=== PATIENT | female | born 1970 | race Caucasian/White ===

== ENCOUNTER 2024-07-10 06:32 | Observation (INO) ==
--- NOTE | 2024-06-14 11:34 | PAT Medication Instructions ---
Medication Instructions Date of Service June 14, 2024 Home Medications albuterol sulfate 90 mcg/actuation aerosol inhaler 1 inh inhalation QID PRN aspirin 81 mg capsule 81 mg PO QAM duloxetine 60 mg capsule,delayed release 60 mg PO QAM metformin 1,000 mg tablet 1,000 mg PO BID oxybutynin chloride 5 mg tablet 5 mg PO QAM pantoprazole 40 mg tablet,delayed release 40 mg PO QAM rizatriptan 10 mg tablet 10 mg PO UD PRN rosuvastatin 10 mg tablet 10 mg PO HS semaglutide 0.25 mg or 0.5 mg (2 mg/3 mL) subcutaneous pen injector (Ozempic) 0.5 mg subcut WK STOP 7 days before surgery semaglutide 0.25 mg or 0.5 mg (2 mg/3 mL) subcutaneous pen injector (Ozempic) 0.5 mg subcut WK Continue as directed rizatriptan 10 mg tablet 10 mg PO UD PRN(if needed) ASK your prescriber and surgeon aspirin 81 mg capsule 81 mg PO QAM DO NOT take the morning of surgery metformin 1,000 mg tablet 1,000 mg PO BID oxybutynin chloride 5 mg tablet 5 mg PO QAM Take morning of surgery With a small sip of water, OTHERWISE NOTHING TO EAT OR DRINK AFTER MIDNIGHT: albuterol sulfate 90 mcg/actuation aerosol inhaler 1 inh inhalation QID PRN(use if needed; please bring with you to hospital day of surgery if possible) duloxetine 60 mg capsule,delayed release 60 mg PO QAM pantoprazole 40 mg tablet,delayed release 40 mg PO QAM Take evening before surgery albuterol sulfate 90 mcg/actuation aerosol inhaler 1 inh inhalation QID PRN(if needed) metformin 1,000 mg tablet 1,000 mg PO BID rosuvastatin 10 mg tablet 10 mg PO HS Other Notes If you have any questions please call us at [phone] or [phone] or [phone] or [phone]
--- NOTE | 2024-06-16 09:26 | Anesthesiology Consultation ---
Date of Service June 16, 2024 Assessment & Plan (1) Encounter for pre-operative examination: - Check BSG AM DOS - Infectious disease screening: Per assessment on 06/16/24: No known recent infectious disease contacts or current infectious disease symptoms. - Outpatient joint assessment: Pt currently scheduled for inpatient pathway. If surgeon requests review for outpatient joint pathway, patient is an acceptable candidate for outpatient joint program from anesthesia standpoint pending surgeon's office assessment that patient is motivated, has good support and completes [facility] Program preop requirements. - Semaglutide instructions: Patient informed by PAT to stop 7 days prior to surgery- voiced understanding. DOS 07/10/24. Advised last dose to be 06/30/24. Chart Review Chart Review: Acceptable Risk for Surgery and Patient seen in Pre Admission Testing Teaching & Discussion Pre-Anesthesia Teaching/Discussion Notes: Instructed NPO after midnight before surgery,except medications with 15 cc of water. Medication instructions provided according to the PAT guidelines. History Surgery Operation Date: 07/10/24 12:00 Proposed Procedures p Left Total Knee Arthroplasty - Didier Denton DO Height/Weight Height: 5 ft 2 in Weight: 82.8 kg Allergies Allergy/AdvReac Type Severity Reaction Status Date / Time amoxicillin Allergy Severe Rash Verified 06/14/24 09:11 Penicillins Allergy Severe Rash Verified 06/14/24 09:11 tirzepatide [From [facility]] Allergy Severe Cellulitis Verified 06/14/24 13:00 at injeciton site oxycodone AdvReac Intermediate Itching Verified 06/14/24 09:11 Medications Home Medications Medication Instructions Recorded Confirmed Last Taken albuterol sulfate 90 mcg/actuation 1 inh inhalation QID PRN sob 06/14/24 06/14/24 Unknown aerosol inhaler aspirin 81 mg capsule 81 mg PO QAM 06/14/24 06/14/24 Unknown duloxetine 60 mg capsule,delayed 60 mg PO QAM 06/14/24 06/14/24 Unknown release metformin 1,000 mg tablet 1,000 mg PO BID 06/14/24 06/14/24 Unknown oxybutynin chloride 5 mg tablet 5 mg PO QAM 06/14/24 06/14/24 Unknown pantoprazole 40 mg tablet,delayed 40 mg PO QAM 06/14/24 06/14/24 Unknown release rizatriptan 10 mg tablet 10 mg PO UD PRN onset of migraines 06/14/24 06/14/24 Unknown rosuvastatin 10 mg tablet 10 mg PO HS 06/14/24 06/14/24 Unknown semaglutide 0.25 mg or 0.5 mg (2 0.5 mg subcut WK 06/14/24 06/14/24 06/09/24 mg/3 mL) subcutaneous pen injector (Ozempic) Past Medical History Medical History Anxiety Diabetes mellitus, type 2 NIDDM GERD (gastroesophageal reflux disease) History of asthma As child + flares with URI No recent issues Hyperlipidemia Migraine Osteoarthritis Overactive bladder Currently controlled Exercise / Class Metabolic Activity II 4-5 Yardwork/Stairs/Walk up hill (one FS: no CP, no SOB) Past Family History Family History Other No family history of adverse response to anesthesia Past Surgical History Surgical History History of anesthesia reaction "Difficulty maintaining SpO2" after lap laura, had to remain overnight with oxygen and was discharged POD#1 History of cholecystectomy History of colonoscopy History of esophagogastroduodenoscopy (EGD) S/P bilateral foot surgery Plantar fascitis repair S/P carpal tunnel release R/L S/P left knee arthroscopy x3 S/P right knee arthroscopy x2 S/P ALMA-BSO Past Anesthesia History No Family Hx of Anesthesia Complications and Other ("Difficulty maintaining SpO2" after lap laura, had to remain overnight with oxygen and was discharged POD#1) History of PONV No Hx of PONV and Hx of Motion Sickness (Vertigo) Social History Smoking Status: Never smoker Do You Dip or Chew Tobacco: No Hx Alcohol Use: Yes alcohol intake frequency: holidays/special occasions only Hx Substance Use: No substance use type: does not use Review of Systems Patient denies chest pain, shortness of breath, dyspnea on exertion, fever, chills, cough, wheezing, palpitations. Physical Exam Vital Signs BP 110/71 P 79 TEMP 98.0 SP02 97%RA RESP 18 Physical Full cervical extension range of motion. Full TMJ range of motion. TMD > 3.5 finger breaths Mallampati Score I Dentition: intact Lungs: clear throughout to auscultation Cardiac: regular rate and rhythm, no murmurs noted Spine: normal Carotid arteries: negative bruit Extremities: no LE edema Lab Results Anesthesia Preop Results Results Anesthesia Widget: WBC 6.34 K/ul (4.8-10.8) 06/16/24 Hgb 12.2 g/dl (12.0-16.0) 06/16/24 Hct 36.9 % (37.0-47.0) L 06/16/24 Plt 210 K/uL (130-400) 06/16/24 Na 140 mmol/L (136-145) 06/16/24 K 4.3 mmol/L (3.5-5.1) 06/16/24 Cl 104 mmol/L (98-107) 06/16/24 CO2 29 mmol/L (21-32) 06/16/24 BUN 12 mg/dl (6-23) 06/16/24 Creat 0.88 mg/dl (0.6-1.2) 06/16/24 Glucose Level 122 mg/dl (70-99(Fasting)) H 06/16/24 PT 10.5 Seconds (9.0-12.0) 06/16/24 PTT 26 Seconds (21-31) 06/16/24 INR 1.0 (0.9-1.1) 06/16/24 HA1c 6.0 % (4.5-5.6) H 06/16/24 Blood Type AB Positive 06/16/24 Antibody Screen NEGATIVE 06/16/24 Testing Electrocardiogram Date: 06/16/24 NSR at 79bpm. "Normal ECG" Chest X-Ray Date: 06/16/24 Findings: + NAD Echocardiogram Date: 10/01/21 EF 60%. Mild MR/TR/PA. Stress Test Date: 10/20/21 Stress EKG was negative for myocardial ischemia at 100% MPHR. Low level of exercise achieved. Recommendations: Improve BP control. May need beta michael.
--- NOTE | 2024-07-06 07:07 | History & Physical Report ---
Date of Service July 06, 2024 Assessment & Plan (1) Osteoarthritis of left knee: We will proceed with a left total knee arthroplasty. Postoperatively she will be started on aspirin for DVT prophylaxis and kept overnight in the hospital for postop medical management. She plans to use energy physical therapy upon discharge. History of Present Illness Chief Complaint: Osteoarthritis of the left knee. Primary Care Provider: NO PCP Carolynn is a pleasant 53-year-old female who has been dealing with chronic increasing left knee pain. She has been seeing another provider. She has had 2 prior arthroscopies of her left knee. Both times she was told she had complete chondral loss on the medial side. She has been dealing with multiple injections. The injections do not help. After failing conservative treatment, she has elected to proceed with a left total knee arthroplasty. Allergies Allergy/AdvReac Type Severity Reaction Status Date / Time amoxicillin Allergy Severe Rash Verified 06/14/24 09:11 Penicillins Allergy Severe Rash Verified 06/14/24 09:11 [facility] Allergy Severe Cellulitis Verified 06/14/24 13:00 at injeciton site oxycodone AdvReac Intermediate Itching Verified 06/14/24 09:11 Home Medications Medication Instructions Recorded Confirmed Type albuterol sulfate 90 mcg/actuation 1 inh inhalation QID PRN sob 06/14/24 06/14/24 History aerosol inhaler aspirin 81 mg capsule 81 mg PO QAM 06/14/24 06/14/24 History duloxetine 60 mg capsule,delayed 60 mg PO QAM 06/14/24 06/14/24 History release metformin 1,000 mg tablet 1,000 mg PO BID 06/14/24 06/14/24 History oxybutynin chloride 5 mg tablet 5 mg PO QAM 06/14/24 06/14/24 History pantoprazole 40 mg tablet,delayed 40 mg PO QAM 06/14/24 06/14/24 History release rizatriptan 10 mg tablet 10 mg PO UD PRN onset of migraines 06/14/24 06/14/24 History rosuvastatin 10 mg tablet 10 mg PO HS 06/14/24 06/14/24 History semaglutide 0.25 mg or 0.5 mg (2 0.5 mg subcut WK 06/14/24 06/14/24 History mg/3 mL) subcutaneous pen injector (Ozempic) Past Med/Surg History Problem List Encounter for pre-operative examination Osteoarthritis of left knee Medical History Overactive bladder Currently controlled Osteoarthritis Migraine History of asthma As child + flares with URI No recent issues GERD (gastroesophageal reflux disease) Anxiety Diabetes mellitus, type 2 NIDDM Hyperlipidemia Surgical History History of anesthesia reaction "Difficulty maintaining SpO2" after lap laura, had to remain overnight with oxygen and was discharged POD#1 History of cholecystectomy History of esophagogastroduodenoscopy (EGD) History of colonoscopy S/P bilateral foot surgery Plantar fascitis repair S/P ALMA-BSO S/P carpal tunnel release R/L S/P right knee arthroscopy x2 S/P left knee arthroscopy x3 Family History Other No family history of adverse response to anesthesia Social History Smoking Status: Never smoker Second Hand Exposure: No; Do You Dip or Chew Tobacco: No; Tobacco Cessation Education Requested by Patient: No Hx Alcohol Use: Yes Hx Substance Use: No Preferred Language: Fijian Communication Ability: Effective Spragger Required: No Beliefs That Will Affect Care: None Current Living Situation: Spouse Other Information That Helps Us Care for You: No Feels Safe at Home: Yes Safety Concerns: Feels Safe At This Time Assistive Devices: Glasses and Hearing Aid - Bilateral Review of Systems All systems reviewed & are unremarkable except as noted in HPI & below. Physical Exam On physical examination left knee, she has slight varus deformity. She has tenderness palpation of the distal medial and lateral femoral condyles. She has no effusion.. Constitutional WD/WN, vitals as above Eyes PERRL, conjunctivae normal, anicteric sclerae ENMT external ear and nose normal, oropharynx normal Neck trachea midline, no thyromegaly Respiratory normal respiratory effort Cardiovascular RRR, no murmur, no edema Gastrointestinal (Abdomen) normal bowel sounds, soft, nontender, no hepatosplenomegaly Psychiatric A+Ox3, euthymic affect Results & Data Results & Data Laboratory Results . Diagnostic Findings X-rays of the left knee show moderate osteoarthritis with some joint space narrowing and small osteophyte formation.. PG Care Time/CCT Total # of Minutes Spent Total Time Spent with Patient: Total time spent is greater than 50% in coordination of care (as documented) at patient's floor/unit and/or counseling patient: Coding Level of Care Code None Diagnoses Osteoarthritis of left knee M17.12
[~2024-07-10 06:32] MED LIST: BUPIVACAINE 0.5 % 5 MG/1 ML PF 10ML VIAL ONE; BUPIVACAINE/EPINEPHRINE 0.25% 1:200,000 30 ML VIAL ONE; DEXAMETHASONE SOD INJ 4 MG/ML VIAL ONE; ceFAZolin 2000MG 2,000 MG/15 ML SYR IV SCH
[2024-07-10] MEDS ORDERED: Nursing to Pharmacy Communication SCH (06:45)
[2024-07-10] MEDS ORDERED: KETAMINE HCL 10MG/ML SYR ONE (06:51)
[2024-07-10] MEDS ORDERED: MIDAZOLAM HCL 1 MG/ML 2ML VIAL ONE (06:51)
[2024-07-10] MEDS ORDERED: LIDOCAINE 2% 2 ML VIAL/AMP(20MG/ML) INFIL ONE (06:52)
[2024-07-10] MEDS ORDERED: PROPOFOL IV EMULSION 10 MG/ML 20 ML VIAL IV ONE (06:52)
[2024-07-10] MEDS ORDERED: GLYCOPYRROLATE 0.2 MG/ML VIAL ONE (06:52)
[2024-07-10] MEDS ORDERED: ONDANSETRON INJ 2 MG/ML 2 ML VIAL ONE (06:52)
[2024-07-10] MEDS ORDERED: fentaNYL citrate PF 100 MCG/2 ML VIAL IV PRN (07:05)
[2024-07-10] MEDS ORDERED: ePHEDrine sulfate 50 MG/ML AMP IV PRN (07:05)
[2024-07-10] MEDS ORDERED: ATROPINE SULFATE 0.1 MG/ML 10ML SYR IV PRN (07:05)
[2024-07-10] MEDS ORDERED: ONDANSETRON INJ 2 MG/ML 2 ML VIAL IV PRN ×2 (07:05→10:49)
[2024-07-10] MEDS: GABAPENTIN 900 MG DOSE PO SCH (07:28)
[2024-07-10] MEDS: ACETAMINOPHEN 500 MG TAB PO SCH ×2 (07:28→14:21)
[2024-07-10] MEDS: FAMOTIDINE 20 MG TAB PO SCH (07:28)
[2024-07-10] MEDS: LR 500ML BOLUS, THEN 15ML/HR IV SCH (07:40)
[2024-07-10] MEDS: LR 60ML/HR IV SCH (07:41)
[2024-07-10] MEDS: ceFAZolin 2,000 MG/15 ML IV PUSH IV ONE (07:41)
[2024-07-10] MEDS: dexAMETHasone**PF** 10 MG/ML VIAL IV SCH (07:43)
[2024-07-10] MEDS: TRANEXAMIC ACID 1,000 MG **IV Pre-op IV SCH (07:44)
--- NOTE | 2024-07-10 07:51 | History & Physical Bridge Note ---
Date of Service July 10, 2024 History & Physical Bridge Note I have examined the patient, reviewed the History & Physical and in the interval since the performance of the History & Physical I have noted the following changes of clinical significance: no changes noted
[2024-07-10] MEDS: ceFAZolin 2000MG 2,000 MG/15 ML SYR IV SCH ×2 (07:57→16:01)
[2024-07-10] MEDS: ROPIV 0.5% 246mg, Ketorolac 30mg, EPINEPHrine 0.5mg in NSS INFIL SCH (08:32)
[2024-07-10] MEDS: ORTHO JOINT ANESTHETIC ONE (08:33)
[2024-07-10] MEDS: TRANEXAMIC ACID 1,000 MG **IV Intra-op IV SCH (08:55)
--- NOTE | 2024-07-10 09:09 | Operative Report ---
PG Post Operative Report Pre & Post Diagnosis Operation Date: 07/10/24 08:00 Pre-Op Diagnosis: Degenerative Joint Disease, Left Knee Post-Op Diagnosis: Degenerative Joint Disease, Left Knee I identified the patient and participated in the time-out.: Yes Procedure Operation Date: 07/10/24 08:00 Actual Procedures p Left Total Knee Arthroplasty(Left) - Didier Denton DO Surgeon Didier Denton DO Cloth Printer Helper Didier De Paz PA-C Estimated Blood Loss 30 Findings Consistent with Post-Op Diagnosis Specimens Left femoral and tibial bone Description of Procedure Implants used: I used a Carla Persona total knee arthroplasty system with a size 6 PS standard femur, C tibia, 28 oval patella, and a size 14 CPS polyethylene bearing. All components were cemented in place with Biomet cement. Carolynn arrived [facility] for the above procedure. She was seen in the preoperative holding area and the operative extremity was identified and signed. She was given a preoperative antibiotic, TXA, a spinal anesthetic and an adductor nerve block. She was taken back to the operating room and laid on the table in supine position. She was given basic sedation. The operative knee was then prepped and draped in sterile fashion. A timeout was done, and the patient and the operative extremity was properly identified. A midline incision was made directly over the patella. Dissection was taken down to the extensor mechanism. A subvastus arthrotomy was used. The medial retinaculum was released and the fat pad was mostly excised. The knee was flexed and the ACL, PCL, and meniscus were removed. A drill was sent down the center of the femoral canal followed by an intramedullary vidhya. Off that vidhya a distal femoral cutting block was placed. 9 mm was resected off the distal femur at 5 of valgus. A posterior referencing AP sizing guide was then placed on the distal femur. The femur measured to be a size 6. 2 drill holes were placed in 3 of external rotation. A 4-in-1 cutting block was then impacted into place. Anterior, posterior, and chamfer cuts were then made. The proximal tibia was then exposed. An external tibial alignment guide was placed. A tibial cut guide was then anchored in place and the proximal tibia was then resected. The posterior aspect of the knee was then opened up and any additional meniscus fragments and osteophytes were removed. The tibia measured to be a size C. The tibial plate was then placed in the appropriate rotation and the tibia was drilled and punched. Trial components were then placed. I used a size 14 CPS polyethylene insert. The knee was brought through a full range of motion and felt to be stable. The peg holes for the femoral component were then drilled. The patella was then everted and 9 mm was resected off the posterior aspect of the patella. The patella measured to be a size 28 oval. 3 peg holes were then drilled. A trial patella was placed. The knee was once again brought through a full range of motion and felt to be stable. Trial components were then removed. The surrounding soft tissues were injected with 100 cc of an orthopedic pain control cocktail. All components were then cemented into place with Biomet cement. The final polyethylene insert was then snapped into place. Once cement was dry the tourniquet was deflated. Hemostasis was obtained. A dilute betadyne lavage was then done for 3 minutes. The joint was then irrigated with normal saline solution. The subvastus arthrotomy was then closed with #1 Vicryl suture. The skin was closed with 2-0 Vicryl, 3-0V lock suture, and sage. A soft compressive dressing was placed. She was then transferred to a hospital bed and taken to the postanesthesia care unit in stable condition. She tolerated the procedure well. Didier De Paz PA-C, was present for the entire procedure. He was critical for patient positioning, prepping, draping, retraction exposure, wound closure and application of sterile dressing. I attest to the content of the Intraoperative Record and any orders documented therein. Any exceptions are noted below.
--- NOTE | 2024-07-10 10:07 | Anesthesiology Progress Note ---
Date of Service July 10, 2024 Anesthesia Post Procedure Vital Signs Vital Signs: Temp Pulse Pulse Resp BP Pulse Ox O2 Del Method 07/10/24 10:00 36.4 C L 90 16 125/71 94 Room Air 07/10/24 09:50 93 H 16 115/71 94 Room Air 07/10/24 09:40 95 H 14 124/69 96 Room Air 07/10/24 09:30 97 H 16 113/68 100 Oxymask 07/10/24 09:20 36.4 C L 103 H 12 119/70 100 Oxymask 07/10/24 06:56 36.5 C 71 18 144/83 H 97 Room Air O2 Flow Rate 07/10/24 10:00 07/10/24 09:50 07/10/24 09:40 07/10/24 09:30 3 07/10/24 09:20 6 07/10/24 06:56 Pain Intensity Left Knee: Pain Intensity: 2 Transfer of Care Handoff Completed per policy Notes Mental Status: alert / awake / arousable Patient Amnestic to Procedure: Yes Nausea / Vomiting: adequately controlled Pain: adequately controlled Airway Patency, RR, SpO2: stable & adequate BP & HR: stable & adequate Hydration State: stable & adequate Neuraxial Anesthesia: was administered and sensory block is resolving Anesthetic Complications: no major complications apparent and Pt Satisfied with anesthetic care
--- NOTE | 2024-07-10 10:33 | XRay Report ---
TWO VIEWS LEFT KNEE CLINICAL HISTORY: Postoperative examination. FINDINGS: AP and crosstable lateral portable views of the left knee are obtained. A left knee arthrop lasty is in near anatomic alignment. There has been undersurface remodeling of the patella. No acute fracture is seen. There are expected postoperative changes around the knee including skin clips, soft tissue edema, and subcutaneous gas. IMPRESSION: Expected postoperative changes status post left knee arthroplasty. No acute fracture is s een. ACT 112: Negative or not required by law. Electronically signed by: Umair Means M.D. 07/10/2024 10:32 AM
[2024-07-10] MEDS ORDERED: NALOXONE HCL 0.4 MG/1 ML VIAL/CARP IV PRN (10:49)
[2024-07-10] MEDS ORDERED: PHARMACY GLYCEMIC MGMT CONSULT PRN (10:49)
[2024-07-10] MEDS ORDERED: RIZATRIPTAN BENZOATE 10 MG TAB PO PRN (10:49)
[2024-07-10] MEDS ORDERED: HYDROmorphone INJ 0.5 MG/0.5 ML SYR IV PRN (10:49)
[2024-07-10] MEDS ORDERED: METOCLOPRAMIDE HCL INJ 5 MG/ML 2 ML VIAL IV PRN (10:49)
[2024-07-10] MEDS ORDERED: ALBUTEROL HFA 8 GM INHALER INH PRN (10:49)
[2024-07-10] MEDS ORDERED: MAGNESIUM HYDROXIDE SUSP 30 ML UDC PO PRN (10:49)
[2024-07-10] MEDS ORDERED: oxyCODONE HCL IR 5 MG TAB (IMMEDIATE RELEASE) PO PRN (10:49)
[2024-07-10] MEDS ORDERED: bisacodyL 10 MG SUPP PR PRN (10:49)
[2024-07-10] MEDS: ALLERGY Noted to ORDERED Medication SCH (10:51)
--- NOTE | 2024-07-10 11:00 | Pharmacy Report ---
Pharmacy Glycemic Short Note 2 - Date of Service July 10, 2024 - Glycemic Short BSG Results (Last 24 hours): 07/10/24 07/10/24 06:48 09:32 POC Glucose 100 H 173 H OUTPATIENT ANTIDIABETIC REGIMEN: * Metformin 1g PO BID * Ozempic 0.5mg SQ Weekly, last dose 06/30/24 * A1c 6% 06/16/24 ASSESSMENT: * 54 yo F, s/p LTKA, blood sugars today 100 --> 173mg/dl, received 10mg IV Dexamethasone preop. No further steroids ordered at this time. * Will begin basal bolus insulin to cover steroid effects and manage blood sugar while inpatient. Loosen NovoLog parameters as steroids wear off. * Type 2 Diabetic diet. PLAN FOR INPATIENT GLYCEMIC CONTROL: * Hold outpatient diabetes medications * Basal insulin * Lantus 20 units SQ x1 now, then 15 units SQ HS for BSG > 180mg/dl, further dosing tomorrow morning. * Bolus insulin * NovoLog per scale ACHS or Q6hrs while NPO * Goal Range: Low 110 mg/dL - High 140 mg/dL * Correction Factor: 20 mg/dL/unit * Nutritional / Prandial insulin per carb ratio of 1 unit per 7 grams CHO consumed
[2024-07-10] MEDS: SODIUM CHLORIDE 0.9% 1,000 ML IV SCH (11:17)
[2024-07-10] MEDS: KETOROLAC 30 MG/ML VIAL IV SCH (11:17)
[2024-07-10] MEDS: INSULIN ASPART PER UNIT CHARGE SC SCH ×2 (11:49→23:49)
[2024-07-10] MEDS: LANTUS PER UNIT CHARGE SC ONE ×2 (12:01→20:56)
[2024-07-10] MEDS: traMADol HCL 50 MG TABLET PO PRN (16:47)
[2024-07-10] MEDS: ASPIRIN 81 MG ECTAB PO SCH (19:48)
[2024-07-10] MEDS: ROSUVASTATIN CALCIUM 10 MG TAB PO SCH (19:48)
[2024-07-10] MEDS: SENNA 8.6 MG TAB PO SCH (20:19)
[2024-07-10] MEDS: DOCUSATE SODIUM 100 MG CAP PO SCH (20:19)
[2024-07-11 03:26] VITALS: O2SAT 92
--- NOTE | 2024-07-11 07:02 | Discharge Summary ---
Date of Service July 11, 2024 Admission HPI (Per Admitting) Carolynn is a pleasant 53-year-old female who has been dealing with chronic increasing left knee pain. She has been seeing another provider. She has had 2 prior arthroscopies of her left knee. Both times she was told she had complete chondral loss on the medial side. She has been dealing with multiple injections. The injections do not help. After failing conservative treatment, she has elected to proceed with a left total knee arthroplasty. Admission Exam (Per Admitting) On physical examination left knee, she has slight varus deformity. She has tenderness palpation of the distal medial and lateral femoral condyles. She has no effusion.. Principal Diagnosis Same as "Discharge Diagnosis" noted below under Discharge Instructions. Discharge Exam On physical examination of left knee, the dressing is clean and dry. Her leg is out full extension. She has active dorsiflexion plantarflexion of her left ankle.. Discharge Data Procedures Performed Operation Date: 07/10/24 08:00 Actual Procedures p Left Total Knee Arthroplasty(Left) - Didier Denton DO Ordered Studies 07/10/24 05:00 US - OR guided needle placemen Routine Hospital Course (1) Status post left knee replacement: On July 10, 2024 Mounika arrived at [facility] and underwent a left knee replacement without complication. She had a spinal anesthetic. Postoperatively she was started on aspirin for DVT prophylaxis and transferred to the general orthopedic floors. Her hospital course was uneventful. On postop day #1, her vital signs were stable and her pain was well-controlled. She was able to participate well with physical therapy doing ambulation and range of motion exercises. She was then discharged to home. She will follow-up with orthopedics in 2 weeks. PG Care Time/CCT Total # of Minutes Spent Total Time Spent with Patient: Total time spent is greater than 50% in coordination of care (as documented) at patient's floor/unit and/or counseling patient: Discharge Plan Discharge Items Patient Disposition: Home - Self-Care Reason For Visit: Degenerative Joint Disease, Left Knee Discharge Diagnosis: Left knee replacement Activity: Per Instructions section Non-emergency contact: Surgeon Call non-emergency contact if: your wound has increased redness and your wound has increased drainage Follow-up/Referrals: Mounika Roe MD [Primary Care Provider] - Diet: Regular Addtl Attending Provider Instructions: Activity and Therapy Recommendations: * If you are using [facility] then therapy will be provided at your home until they feel you have accomplished all of your goals. * If you are using [facility] then Physical Therapy will be provided until they feel you are ready to start Outpatient Physical Therapy. * If you are not using home therapy then Outpatient Physical Therapy should start about 3-5 days from your day of surgery. Therapy will last about 6-10 weeks * It is important not to put a pillow under your knee when you are relaxing or sleeping. It is just as important to make sure you are getting your knee perfectly straight as it is to regain your knee bend. * You were shown a series of exercises in the hospital. Do these exercises three times each day including the exercises you were shown in physical therapy. * Get up and walk several times each day. For the first four weeks, try not to stand or walk for more than one hour at a time. If you do stand or walk for more than one hour, you will not hurt anything, but your leg will likely swell. * As you feel comfortable, you may change from the walker or crutches to a cane and then to independent walking. Medications: * Narcotic You will likely be sent home from the hospital with a prescription for the narcotic pain medication that worked best throughout your stay. * Cefadroxil -take the antibiotic twice a day for 10 days to help prevent infection. * Aspirin Most patients will be required to take Aspirin 81mg twice a day for 6 weeks after surgery. This is obtained [id number] and a prescription is not necessary. * Other medications may be prescribed for specific circumstances. If you have any questions, please call the office at . * Resume previous home medications unless otherwise instructed TEDs/Elastic Stockings: The white elastic stockings help limit swelling and prevent blood clots from forming in your legs.~ The more you wear them, the more they work. Wear them for six weeks. Dressing Care: The dressing can be changed after physical therapy on postop day #1. Daily dry dressing changes for a few days, especially if the incision is still draining some. If the incision is not draining then you may leave the sage open to air. If there is a little bit of drainage or if the sage are getting stuck on your clothing then cover the incision with a dry dressing. The sage will be removed at your 2 week follow-up appointment. Showering: You may shower 5 days from the day of surgery as long as the incision is no long er draining. You may shower with the sage exposed. Let soapy water run over the sage and pat them dry. Do not scrub or soak the incision. Things To Watch For: * Drainage from the incision site that occurs more than one week after your surgery. * Increased redness at the incision site. * Fever above 102 degrees Fahrenheit. * Unusual chest pain or shortness of breath. * Call [facility] at with any of the above problems Follow-Up Visit: Follow-up with Dr. Denton's PA (Didier De Paz) 2-3 weeks after your day of surgery. He will remove your sage and answer any questions. If you have any additional questions or concerns, Dr Denton is usually in the office at the same time and will be available An appointment was probably scheduled when you signed-up for surgery in the office. If you have any questions call Office Instructions: More detailed instructions as well as Frequently Asked Questions were provided in a folder by our office when you signed-up for surgery. Please review these instructions when you get home. If you have any further questions or concerns, please feel free to call the office at [phone] Pending Studies at Discharge: No Stand-Alone Forms: [facility], Sm[facility] Cessation Medications and DC Order Prescriptions: New oxycodone 5 mg Tablet 5 mg PO Q4H PRN (Reason: pain) Qty: 30 0RF cefadroxil 500 mg capsule 500 mg PO BID 10 Days Qty: 20 0RF Continued rizatriptan 10 mg Tablet 10 mg PO UD PRN (Reason: onset of migraines) Rx Instructions: take 1 tab at onset of headache; if no relief may repeat 1 tab after at least 2 hrs; max = 3 tabs/24 hr pantoprazole 40 mg Tablet,Delayed Release (Dr/Ec) 40 mg PO QAM metformin 1,000 mg Tablet 1,000 mg PO BID albuterol sulfate 90 mcg/actuation Hfa Aerosol Inhaler 1 inh INHALATION QID PRN (Reason: sob) oxybutynin chloride 5 mg Tablet 5 mg PO QAM rosuvastatin [Crestor] 10 mg Tablet 10 mg PO HS duloxetine 60 mg Capsule,Delayed Release(Dr/Ec) 60 mg PO QAM Ozempic 0.25 mg or 0.5 mg (2 mg/3 mL) Pen Injector 0.5 mg SUBCUT WK Changed aspirin 81 mg Capsule 81 mg PO BID 42 Days Qty: 0 0RF Discharge Orders: Discharge Order (Routine); Ordered 07/11/24 Ordered By: Didier Denton Admission Data Admit Date/Time: 07/10/24 09:21 Attending Provider: Didier Denton Admit Provider: Didier Denton Primary Care Provider: Mounika Roe
--- NOTE | 2024-07-11 07:02 | Orthopedic Progress Note ---
Date of Service July 11, 2024 Assessment & Plan (1) Status post left knee replacement: Overall she is doing well. She is not having much pain in the left knee. She will be seen by physical therapy today for ambulation and range of motion exercises. She is on aspirin for DVT prophylaxis. The nursing staff can change her dressing after physical therapy. She can be discharged to home later today. She will follow-up orthopedics in 2 weeks. Juan Daniel Ribera was seen and examined at bedside this morning. Overall she is doing very well. She is not having much pain in the left knee. She has been up and ambulating to the bathroom. She has no complaints.. Review of Systems All systems reviewed & are unremarkable except as noted in HPI & below. Physical Exam On physical examination of left knee, the dressing is clean and dry. Her leg is out full extension. She has active dorsiflexion plantarflexion of her left ankle.. Results & Data Results & Data Laboratory Results . Diagnostic Findings Postoperative x-rays of the left knee show the prosthesis to be in anatomic alignment without any evidence of fracture, dislocation, or loosening.. PG Care Time/CCT Total # of Minutes Spent Total Time Spent with Patient: Total time spent is greater than 50% in coordination of care (as documented) at patient's floor/unit and/or counseling patient: Coding Level of Care Code 99563 Post Operative Follow-Up Diagnoses Status post left knee replacement Z96.652
[2024-07-11] MEDS: DULoxetine HCL 60 MG CAP PO SCH (07:14)
[2024-07-11] MEDS: oxyBUTYnin chloride 5 MG TAB PO SCH (07:15)
[2024-07-11 07:18] VITALS: BP 111/70; PULSE 79; RESP 16; TEMP 98.4
[2024-07-11] MEDS: MULTIVITAMIN TAB PO SCH (07:26)
== END 2024-07-11 11:26 | disposition home or self-care (01) ==
LOC: 3E 06:32 → ASU 06:32
DX: Z88.0 Allergy status to penicillin; M17.12 Unilateral primary osteoarthritis, left knee; Z88.5 Allergy status to narcotic agent; J45.909 Unspecified asthma, uncomplicated; E11.9 Type 2 diabetes mellitus without complications; K21.9 Gastro-esophageal reflux disease without esophagitis; Z88.8 Allergy status to other drugs, medicaments and biological substances; Z79.899 Other long term (current) drug therapy; Z79.84 Long term (current) use of oral hypoglycemic drugs; Z79.82 Long term (current) use of aspirin